=== PATIENT | male | born 1990 | race Caucasian/White ===

== ENCOUNTER 2018-03-21 21:39 | Emergency (ER) | payer SELFPAY ==
[~2018-03-21] VITALS: Ht 165.1 cm; Wt 59.4 kg
[2018-03-21 21:52] VITALS: BP 126/82
== END 2018-03-21 23:03 | disposition home or self-care (01) ==
LOC: ED 22:53
DX: R23.8 Other skin changes (principal)
CPT/HCPCS: 99281

== ENCOUNTER 2018-06-03 13:59 | Emergency (ER) | payer SELFPAY ==
[~2018-06-03] VITALS: Ht 167.6 cm; Wt 60.4 kg
[2018-06-03 14:14] VITALS: BP 109/72
== END 2018-06-03 15:37 | disposition left against medical advice (07) ==
LOC: ED 15:15
DX: R56.9 Unspecified convulsions (principal)
CPT/HCPCS: 99281; 99283